=== PATIENT | male | born 1960 | race Caucasian/White ===

== ENCOUNTER 2019-04-12 11:32 | Inpatient (IN) | payer BC, OTHER ==
[~2019-04-12] VITALS: Ht 175.3 cm; Wt 88.0 kg
[2019-04-12 11:35] VITALS: BP 143/88
[2019-04-12] MEDS ORDERED: PRINIVIL10 MG PO (12:20)
[2019-04-12] MEDS ORDERED: RANITIDINE HCL150 M1 PO (12:20)
[2019-04-12 12:34] LABS: ABSOLUTE NEUTROPHILS 4.2 thou/uL (1.4-8.2); BASOPHILS 0.7 % (0.0-2.0); EOSINOPHILS 1.3 % (0.0-3.0); HEMATOCRIT 48.8 % (42.0-52.0); HEMOGLOBIN 16.1 gm/dL (14.0-18.0); MCH 28.3 pg (26.0-34.0); MCV 85.8 fL (80.0-100.0); MONOCYTES 7.3 % (1.0-8.0); PLATELET COUNT 156 thou/uL (150-400); POLYS 64.7 % (36.0-66.0); RBC 5.69 mil/uL (4.50-6.00); RDW 13.9 % (10.5-14.5); WBC 6.5 thou/uL (4.0-11.0)
[2019-04-12 12:56] LABS: ANION GAP 9 mmol/L (7-16); BUN 18 mg/dL (7-18); CALCIUM 9.1 mg/dL (8.5-10.1); CHLORIDE 102 mmol/L (98-107); CO2 27 mmol/L (21-32); CREATININE 1.2 mg/dL (0.7-1.3); GLUCOSE 95 mg/dL (74-106); POTASSIUM 4.1 mmol/L (3.5-5.1); SODIUM 138 mmol/L (136-145); TROPONIN-I <0.06 ng/mL (<0.06)
[2019-04-12 16:02] LABS: CHOLESTEROL 239 mg/dL (<200); HDL CHOLESTEROL 31 mg/dL (>40); LDL CHOLESTEROL 183 mg/dL (<100); TC:HDL 7.7 Ratio (Not establshd); TRIGLYCERIDE 127 mg/dL (<150); VLDL 25 mg/dL (<40)
[2019-04-12 16:20] LABS: INR 1.1; PROTIME 10.8 Seconds (9.3-11.4)
[2019-04-12 16:41] VITALS: BP 147/78
[2019-04-12 16:59] VITALS: BP 129/81
[2019-04-12 17:00] VITALS: BP 119/70
--- NOTE | 2019-04-12 18:25 | NUR ---
PT ADMITED FROM ER. ADMISSION HX AND ASSESSMENT. PT ALERT AND ORIENTED. VSS. DENIED HAVING PAIN OR DISCOMFORT. NEW ORDERS NOTED. WILL CONTINUE TO MONITOR.
[2019-04-12 20:15] VITALS: BP 137/93
[2019-04-13] VITALS (14 sets, daily range): BP systolic 105–127; BP diastolic 64–82
--- NOTE | 2019-04-13 05:51 | NUR ---
ASSUMED PT CARE AROUND 1910. PT WAS RESTING IN BED WITH FAMILY AT BEDSIDE. PT CONSENTS WERE SIGNED AND PT HAS BEEN NPO SINCE MIDNIGHT. PT HAD ZERO C/O CHEST PAIN, SOA, N/V/D THRU NIGHT. PT ASSESSMENTS CHARTED AND PT RESTED THRU NIGHT WITH MINIMAL INTERRUPTIONS. WILL MONITOR PER PHYSICIAN ORDERS.
--- NOTE | 2019-04-13 08:54 | CATHLAB ---
[facility] [place] [address] [place] [address] INVASIVE PROCEDURE REPORT Name: JEANETTE ALAN Room #: 209-P ADM IN .R.#: [id number] Admission: 04/12/19 Attend Phys: Shira Amaya MD Discharge: Date of : 60 Report #: [id number] THIS REPORT FOR: cc: [facility] - Clinic physician unknown [facility] - Clinic physician unknown Terry Leonard MD [facility] ~ APPROVED REPORT Study performed: 04/13/2019 07:31:10 Patient Details Patient Status: In-Patient Room #: The patient is a 59 year-old male Event Personnel Terry Leonard Care Transitions Nurse, Marion Diaz RN RN, Paulette Jimenez RTR, RIVERA Garcia, Tahira Palacios Monitor Procedures Performed Art Access - R femoral artery* 57922 Initial Mod Sed Same Phys/QHP Gr5y 900294 Left Heart Cath w/or w/o Coronaries [id number] LHC Hemostasis w/ Mynx 45550 Mod Sed Same Phys/QHP Ea 964951 Indication Chest pain Procedure Narrative The patient was brought electively to the Cardiac Catheterization Laboratory and was prepped and draped in a sterile manner. The Right Groin^ was infiltrated with 1% Lidocaine subcutaneous anesthesia. A PINNACLE 6FR Sheath #[id number] sheath was inserted into the RFA^. Coronary angiography was performed using coronary diagnostic catheters. The right coronary system was accessed and visualized with a JR4 catheter. The left coronary system was accessed and visualized with a JL4.5 catheter. The left ventricle was accessed and visualized with a ANGLE PIG catheter. Left ventriculogram was performed in 30 degree projection. There was no hematoma. Intraoperative Conscious Sedation Sedation start time: 746 Case end Time: 819 Fentanyl 50 mcg Versed 1 mg [facility] [address] [place] [address] INVASIVE PROCEDURE REPORT Name: JEANETTE ALAN Room #: 209-P [facility] IN [facility]#: [id number] Admission: 04/12/19 Attend Phys: Taylor Carrizales Discharge: Date of : 60 Report #: [id number] Fluoro Time: 4.00 minutes Dose: DAP 7012.00 cGycm2 907 mGy Contrast Type and Amount: Omnipaque 135 ml Coronary Angiography The patient's coronary anatomy is co- dominant. Diagnostic Cath Left Main Critical 99% ostial left main stenosis LAD Tubular 60% proximal to mid LAD stenosis Right to left collateralization filling the distal third of the LAD Diagonal 1 80% ostial first diagonal branch stenosis Circumflex Codominant circumflex with sequential 50-60% mid circumflex stenoses before the origin of the posterior descending OM1 Moderate size first marginal branch with mild proximal plaquing OM2 Moderate size second marginal branch, angiographically normal Right Coronary Tubular 65-70% ostial to proximal right coronary stenosis. Significant pressure dampening on engagement of the right coronary. R PDA Moderately large posterior descending, angiographically normal. Right to left collateralization to the distal portion of the LAD Left Ventriculography The left ventricle is normal in size with normal contractility. The left ventricular ejection fraction is estimated to be 60-65%. Left ventricular wall motion abnormalities are not present. There is no mitral insufficiency. Hemodynamics The aortic pressure is 118/63 mmHg with a mean of 87 mmHg. The left ventricular pressure is 109/3 mmHg with a mean of mmHg. The left ventricular end diastolic pressure is 12 mmHg. There was no gradient across the aortic valve upon pullback. Conclusion 1. Normal global and regional left ventricular systolic function. Ejection fraction 65% 2. Critical 99% ostial left main stenosis 3. Diffuse moderate to moderately severe multivessel coronary disease [facility] [address] [place] [address] INVASIVE PROCEDURE REPORT Name: JEANETTE ALAN Room #: 209-P [facility] IN ..#: [id number] Admission: 04/12/19 Attend Phys: Taylor Carrizales Discharge: Date of : 60 Report #: [id number] Recommendations Cardiac Rehabilitation Referral CABG <ELECTRONICALLY SIGNED> By: Terry Leonard MD, [facility] 04/13/19 0853 0853 0853 Terry Leonard MD, [facility] /INF
[2019-04-13 10:27] LABS: ABSOLUTE NEUTROPHILS 5.1 thou/uL (1.4-8.2); BASOPHILS 0.6 % (0.0-2.0); HEMATOCRIT 49.2 % (42.0-52.0); HEMOGLOBIN 16.1 gm/dL (14.0-18.0); LYMPHOCYTES 19.3 % (24.0-44.0); MCH 28.1 pg (26.0-34.0); MCHC 32.8 g/dL (28.0-37.0); MCV 85.8 fL (80.0-100.0); MONOCYTES 6.3 % (1.0-8.0); PLATELET COUNT 156 thou/uL (150-400); POLYS 72.8 % (36.0-66.0); RBC 5.73 mil/uL (4.50-6.00); RDW 13.8 % (10.5-14.5)
[2019-04-13 10:30] LABS: CALCIUM 8.8 mg/dL (8.5-10.1); CREATININE 1.2 mg/dL (0.7-1.3); POTASSIUM 4.4 mmol/L (3.5-5.1)
[2019-04-13 10:37] LABS: ALBUMIN 3.9 g/dL (3.4-5.0); TOTAL BILIRUBIN 1.1 mg/dL (<0.1-1.0); TOTAL PROTEIN 6.8 g/dL (6.4-8.2)
[2019-04-13 14:23] LABS: URINE BILIRUBIN NEGATIVE (Negative); URINE BLOOD NEGATIVE (Negative); URINE CLARITY CLEAR; URINE COLOR YELLOW; URINE GLUCOSE-RANDOM* NEGATIVE (Negative); URINE KETONES NEGATIVE (Negative); URINE LEUKOCYTES-REFLEX NEGATIVE (Negative); URINE NITRITE-REFLEX NEGATIVE (Negative); URINE PROTEIN (DIPSTICK) NEGATIVE (Negative)
--- NOTE | 2019-04-13 16:06 | 2DMMODE ---
[facility] [place] [address] 2 D/M-MODE ECHOCARDIOGRAM Name: JEANETTE ALAN Room #: 209-P ADM IN M.R.#: [id number] Admission: 04/12/19 Attend Phys: Shira Amaya MD Discharge: Date of : 60 Report #: [id number] THIS REPORT FOR: cc: [facility] - Clinic physician unknown [facility] - Clinic physician unknown Terry Leonard MD [facility] ~ APPROVED REPORT Study performed: 04/13/2019 14:17:21 EXAM: Comprehensive 2D, Doppler, and color-flow Echocardiogram Patient Location: Bedside Room #: 209 Status: routine BSA: 2.03 HR: 72 bpm BP: 106/71 mmHg Rhythm: NSR Other Information Study Quality: Good Indications CAD Chest Pain Hypertension/HDD 2D Dimensions RVDd: 38.49 mm IVSd: 8.74 (7-11mm) LVOT Diam: 21.68 (18-24mm) LVDd: 44.36 mm PWd: 9.22 (7-11mm) Ascending Ao: 30.46 (22-36mm) LVDs: 31.52 (25-40mm) Aortic Root: 32.11 mm Volumes Left Atrial Volume (Systole) Single Plane 4CH: 46.68 mL Single Plane 2CH: 46.05 mL LA ESV Index: 25.00 mL/m2 Aortic Valve AoV Peak Avinash.: 1.72 m/s AO Peak Gr.: 11.77 mmHg LVOT Max P.63 mmHg LVOT Max V: 1.08 m/s [facility] [place] [address] [place] [address] 2 D/M-MODE ECHOCARDIOGRAM Name: JEANETTE ALAN Room #: 209-P [facility] IN .R.#: [id number] Admission: 04/12/19 Attend Phys: Taylor Carrizales Discharge: Date of : 60 Report #: [id number] SABRINA Vmax: 2.32 cm2 Mitral Valve E/A Ratio: 0.9 MV Decel. Time: 236.43 ms MV E Max Avinash.: 0.66 m/s MV A Avinash.: 0.73 m/s MV PHT: 68.57 ms IVRT: 106.11 ms Pulmonary Valve PV Peak Avinash.: 0.90 m/s PV Peak Gr.: 3.22 mmHg Pulmonary Vein P Vein S: 0.53 m/s P Vein A: 0.26 m/s P Vein D: 0.47 m/s P Vein A Dur.: 106.1 msec P Vein S/D Ratio: 1.13 Left Ventricle The left ventricle is normal size. There is normal LV segmental wall motion. There is normal left ventricular wall thickness. The left ventricular systolic function is normal. The left ventricular ejection fraction is within the normal range. LVEF is 55-60%. Mild diastolic dysfunction is present (impaired relaxation pattern). Right Ventricle The right ventricle is normal size. The right ventricular systolic function is normal. Atria The left atrium size is normal. The right atrium size is normal. Aortic Valve The aortic valve is mildly calcified. No aortic regurgitation is present. There is no aortic valvular stenosis. Mitral Valve The mitral valve is normal in structure. There is no mitral valve regurgitation noted. No evidence of mitral valve stenosis. Tricuspid Valve The tricuspid valve is normal in structure. There is no tricuspid valve regurgitation noted. [facility] [place] [address] [place] [address] 2 D/M-MODE ECHOCARDIOGRAM Name: JEANETTE ALAN Room #: 209-P ADM IN .R.#: [id number] Admission: 04/12/19 Attend Phys: Taylor Carrizales Discharge: Date of : 60 Report #: [id number] Pulmonic Valve The pulmonary valve is normal in structure. There is no pulmonic valvular regurgitation. Great Vessels The aortic root is normal in size. The inferior vena cava is not well visualized. Pericardium There is no pericardial effusion. <Conclusion> The left ventricular systolic function is normal. There is normal LV segmental wall motion. LVEF is 55-60%. Mild diastolic dysfunction is present (impaired relaxation pattern). The aortic valve is mildly calcified. No aortic regurgitation or stenosis. The mitral valve is normal in structure. No mitral valve regurgitation. Pulmonary artery pressure could not be reliably ascertained. There is no pericardial effusion. <ELECTRONICALLY SIGNED> By: Terry Leonard MD, [facility] 04/13/19 1605 1605 04 Terry Leonard MD, [facility] /INF
--- NOTE | 2019-04-13 17:18 | NUR ---
ASSESSMENT CHARTED. PT ALERT AND ORIENTED. HAD CARDIAC CATH THIS AM WITH NO INTERVENTION. RIGHT GROIN INCISION. C/D/I. NO HEMATOMA NOTED. ORDERS GIVEN TO RESTART HEPARIN GTT. DR. HERNANDEZ CONSULTED. NEW ORDERS NOTED. NO CARDIAC OR RESPIRATORY DISTRESS NOTED. WILL CONTINUE TO MONITOR.
[2019-04-13 23:10] LABS: GLYCOHEMOGLOBIN (HGB A1C) 5.6 % (4.8-5.6)
[2019-04-14 00:24] VITALS: BP 118/70
--- NOTE | 2019-04-14 04:47 | NUR ---
ASSUMED PT CARE AROUND 1910. PT IN BED WITH FAMILY AT BEDSIDE. PT C/O ZERO PAIN, N/V/D. GROIN SITE IS C/D/I. PT RESTED THRU NIGHT WITH MINIMAL INTERRUPTIONS. WILL CONTINUE TO MONITOR PT PER PHYSICIAN ORDERS.
[2019-04-14 05:15] VITALS: BP 106/77
--- NOTE | 2019-04-14 08:15 | HC ---
[facility] [place] [facility] [place] [address] CONSULTATION Name: JEANETTE ALAN Room #: 209-P [facility] IN ..#: [id number] Admission: 04/12/19 Attend Phys: Shira Amaya MD Discharge: Date of : 60 Report #: [id number] THIS REPORT FOR: cc: [facility] - Clinic physician unknown [facility] - Clinic physician unknown Jeanette Beltrán MD ~ CC: Shira Leonard [facility] unknown DATE OF SERVICE: 04/13/2019 We were asked by Dr. Leonard to see the patient. HISTORY OF PRESENT ILLNESS: The patient is a 59-year-old who was admitted yesterday with angina. The patient describes progressive exertional discomfort that begins as a burning feeling in the epigastric area and then radiates up to what he calls the jowl area (neck). The patient states that this problem has existed for the last 6 months or so, but has become worse. He recently spoke with another individual who had similar symptoms and was informed that this could be coronary symptom and so he sought care in the Emergency Department. It does not sound like the patient was brought to the Emergency Department by some acute event, however. PAST MEDICAL HISTORY: Significant for hypertension. The patient denies diabetes mellitus. FAMILY HISTORY: Positive for coronary artery disease in father and a brother. MEDICATIONS AT HOME: The patient states he takes lisinopril for high blood pressure and ranitidine for reflux disease. PAST SURGICAL HISTORY: Carpal tunnel. SOCIAL HISTORY: Denies tobacco use. 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 REVIEW OF SYSTEMS: GENERAL: The patient denies fever or chills. EYES: No vision change. HEENT: No headache. No nasal discharge. RESPIRATORY: No shortness of breath. CARDIAC: As mentioned, exertional angina, radiating to the neck. No palpitations. GASTROINTESTINAL: Reflux. No nausea, vomiting blood. GENITOURINARY: No urgency, frequency, blood. [facility] [place] [facility] [address] [place] [address] CONSULTATION Name: JEANETTE ALAN Room #: 209-P [facility] IN ..#: [id number] Admission: 04/12/19 Attend Phys: Shira Amaya MD Discharge: Date of : 60 Report #: [id number] MUSCULOSKELETAL: No bone or joint complaints. SKIN: No rash or infection. NEUROLOGIC: No motor or sensory dysfunction. PSYCHIATRIC: No depression or anxiety. ENDOCRINE: No goiter, no tremor. PHYSICAL EXAMINATION: GENERAL: The patient is lying in bed after cardiac catheterization. VITAL SIGNS: Temperature 37, heart rate 65, respiratory rate 18, blood pressure 120/70. HEENT: No scleral icterus, no arcus. NECK: No mass, no bruit. CHEST: Clear to auscultation. HEART: Rhythm regular, no murmur. ABDOMEN: Soft, no mass, no tenderness. EXTREMITIES: No clubbing, cyanosis or edema. No obvious saphenous vein problems. SKIN: No rash or infection. MUSCULOSKELETAL: No bone or joint asymmetry or deformity. NEUROLOGIC: No motor or sensory dysfunction. PSYCHIATRIC: Oriented x 3. Shows insight into problem and answers questions appropriately. Cardiac catheterization revealed high-grade left main stenosis with subtotal occlusion of the LAD and 60% right coronary stenosis. Left ventricular function is satisfactory. I reviewed the findings of the catheterization with the patient. I have recommended that he have coronary artery bypass surgery for this tight and symptomatic left main. Risks and details of surgery were discussed. Options and alternatives were reviewed. The patient understands all of this and wishes to proceed. We will try to arrange a date for surgery this week. 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 The patient understands and agrees with all of this. Thank you for the consult. <ELECTRONICALLY SIGNED> By: Jeanette Beltrán MD 04/14/19 0815 0938 0951 Jeanette Beltrán MD /nt
[2019-04-14 08:21] VITALS: BP 128/88
[2019-04-14 11:15] VITALS: BP 129/79
--- NOTE | 2019-04-14 12:34 | EKG ---
[facility] [place] [address] ELECTROCARDIOGRAM REPORT Name: JEANETTE ALAN Room #: 209- ADM IN M.R.#: [id number] Admission: 04/12/19 Attend Phys: Shira Amaya MD Discharge: Date of : 60 Report #: [id number] THIS REPORT FOR: cc: [facility] - Clinic physician unknown [facility] - Clinic physician unknown Terry Leonard MD [facility] ~ THIS REPORT FOR: //name// 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 : 1960 Requested By: Marylou Garnett Order Number: [id number] MD: Terry Leonard Measurements Intervals [place] Rate: 64 P: 52 IA: 145 QRS: -7 QRSD: 97 T: 8 QT: 385 QTc: 398 Interpretive Statements Sinus rhythm Ventricular premature complex Possible inferior infarct, age indeterminate Compared to ECG 12/18/2005 20:02:35 Ventricular premature complex(es) now present Inferior Q waves are more prominent Electronically Signed On 04-13-2019 9:07:30 APARTMENT RENTAL AGENT by Terry Leonard [email or web address] <ELECTRONICALLY SIGNED> By: Terry Leonard MD, [facility] 04/13/19 0907 1130 1130 Terry Leonard MD, [facility] /EPI
--- NOTE | 2019-04-14 15:32 | NUR ---
met with patient who is planned CABG in am. Patient resides in home with spouse on [address]. 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 Local [address] [place] [address] clinic is were PCP located. It is clinic were patient rec medical care. Plan home independent once stable. Casemgt following
--- NOTE | 2019-04-14 15:39 | NUR ---
PT ALERT AND ORIENTED. VSS. DENIED HAVING PAIN OR DISCOMFORT. NSR ON TELE. NO CARDIAC DISTRESS NOTED. HEPARIN GTT INFUSING ORDERED. SEEN BY DR. HERNANDEZ. NEW ORDERS NOTED. NO CONCERNS AT THIS TIME. WILL CONTINUE TO MONITOR.
[2019-04-14 20:44] VITALS: BP 117/69
--- NOTE | 2019-04-15 03:58 | NUR ---
ASSESSMENT DOCUMENTED.PT BEEN RESTING IN NO ACUTE DISTRESS.A/OX4.VSS,DENIES CHEST PAIN.ON HEPARIN DRIP PER PROTOCOL,ON HOLD AT THIS TIME D/T APTT BEING CRITICAL.NSR ON MONITOR WITH SOME EPISODES OF SINUS FERDINAND WHILE SLEEPING.UP AD AR IN THE ROOM.POC IS TO HAVE CABG ON FRIDAY.WILL CONT TO MONITOR PER POC.
[2019-04-15 05:13] VITALS: BP 115/72
[2019-04-15 08:00] VITALS: BP 127/76
[2019-04-15 12:35] VITALS: BP 125/75
--- NOTE | 2019-04-15 15:12 | NUR ---
PT ALERT AND ORIENTED. VSS. DENIED HAVING PAIN OR DISCOMFORT. NPO AFTER MIDNIGHT FOR SURGERY IN AM. HEPARIN GTT INFUSING PER PROTOCAL SEE HEAPRIN FLOW SHEET. NO CARDIAC DISTRESS NOTED. WILL CONTINUE TO MONITOR.
[2019-04-15 16:00] VITALS: BP 125/74
--- NOTE | 2019-04-15 16:41 | NUR ---
All parties anticipating heart surgery tomorrow with transfer to ICU postop. Will follow along for possible hh referral at [place].
[2019-04-15 20:30] VITALS: BP 126/71
[2019-04-16] VITALS (25 sets, daily range): BP systolic 86–142; BP diastolic 34–89
--- NOTE | 2019-04-16 02:53 | NUR ---
ASSESSMENTS CHARTED, MEDS GIVEN CHARTED. PATIENT SCHEDULED FOR CABG SURGERY IN AM. PATIENT CONCERNED ABOUT PROCEDURE IN AM. PATIENT ON HEPARIN DRIP AT THERAPUTIC LEVEL. SINUS RHYTHM ON TELEMETRY, CLEAR OVER DIMINISHED LUNGS ON ROOM AIR. PATIENT HAS BEEN NPO SINCE MIDNIGHT FOR PROCEDURE. PATIENT SHOWERED AND LEADS WERE MOVED TO HIS BACK. PATIENT TO SHOWER IN MORNING PRIOR TO GOING.
[2019-04-16 12:46] LABS: MCH 28.3 pg (26.0-34.0); MCHC 33.1 g/dL (28.0-37.0); MCV 85.6 fL (80.0-100.0); RBC 4.04 mil/uL (4.50-6.00); RDW 13.5 % (10.5-14.5); WBC 12.9 thou/uL (4.0-11.0)
[2019-04-16 12:48] LABS: HEMATOCRIT 34.6 % (42.0-52.0); HEMOGLOBIN 11.4 gm/dL (14.0-18.0)
[2019-04-16 12:59] LABS: FIBRINOGEN 197.1 mg/dL (210-360); INR 1.4; PROTIME 14.6 Seconds (9.3-11.4)
[2019-04-16 13:00] LABS: APTT 34.9 Seconds (24.5-32.8)
[2019-04-16 13:39] LABS: POC BE 3 mmol/L (-2.0 to +3.0); POC CA IONIZED 4.9 mg/dL (4.5-5.3); POC GLUCOSE 117 mg/dL (70-99); POC HCO3 27.8 mmol/L (22.0-26.0); POC HEMOGLOBIN 15.6 g/dL (14.0-18.0); POC POTASSIUM 4.5 mmol/L (3.5-5.1); POC SODIUM 136 mmol/L (136-145); POC pCO2 44.7 mmHg (35.0-45.0); POC pH 7.402 (7.360-7.450)
[2019-04-16 13:40] LABS: POC BE -2 mmol/L (-2.0 to +3.0); POC CA IONIZED 4.6 mg/dL (4.5-5.3); POC GLUCOSE 175 mg/dL (70-99); POC HCO3 23.9 mmol/L (22.0-26.0); POC HEMOGLOBIN 12.2 g/dL (14.0-18.0); POC POTASSIUM 4.1 mmol/L (3.5-5.1); POC SODIUM 139 mmol/L (136-145); POC pCO2 44.6 mmHg (35.0-45.0); POC pH 7.337 (7.360-7.450)
[2019-04-16 13:40] LABS: POC BE 0 mmol/L (-2.0 to +3.0); POC CA IONIZED 4.1 mg/dL (4.5-5.3); POC GLUCOSE 234 mg/dL (70-99); POC HCO3 25.6 mmol/L (22.0-26.0); POC HEMOGLOBIN 11.2 g/dL (14.0-18.0); POC POTASSIUM 4.6 mmol/L (3.5-5.1); POC SODIUM 136 mmol/L (136-145); POC pCO2 44.4 mmHg (35.0-45.0); POC pH 7.369 (7.360-7.450)
[2019-04-16 13:40] LABS: POC BE 0 mmol/L (-2.0 to +3.0); POC CA IONIZED 4.3 mg/dL (4.5-5.3); POC GLUCOSE 167 mg/dL (70-99); POC HEMOGLOBIN 11.2 g/dL (14.0-18.0); POC POTASSIUM 4.7 mmol/L (3.5-5.1); POC SODIUM 134 mmol/L (136-145); POC pCO2 41.3 mmHg (35.0-45.0); POC pH 7.391 (7.360-7.450)
[2019-04-16 13:40] LABS: POC BE -3 mmol/L (-2.0 to +3.0); POC CA IONIZED 4.8 mg/dL (4.5-5.3); POC GLUCOSE 221 mg/dL (70-99); POC HCO3 22.9 mmol/L (22.0-26.0); POC HEMOGLOBIN 11.2 g/dL (14.0-18.0); POC POTASSIUM 4.2 mmol/L (3.5-5.1); POC SODIUM 137 mmol/L (136-145); POC pCO2 41.4 mmHg (35.0-45.0); POC pH 7.351 (7.360-7.450)
[2019-04-16 13:40] LABS: POC BE -2 mmol/L (-2.0 to +3.0); POC CA IONIZED 4.3 mg/dL (4.5-5.3); POC GLUCOSE 244 mg/dL (70-99); POC HCO3 23.7 mmol/L (22.0-26.0); POC HEMOGLOBIN 11.6 g/dL (14.0-18.0); POC POTASSIUM 4.4 mmol/L (3.5-5.1); POC SODIUM 137 mmol/L (136-145); POC pCO2 45.3 mmHg (35.0-45.0); POC pH 7.327 (7.360-7.450)
[2019-04-16 13:40] LABS: POC BE 1 mmol/L (-2.0 to +3.0); POC CA IONIZED 4.6 mg/dL (4.5-5.3); POC GLUCOSE 135 mg/dL (70-99); POC HCO3 25.7 mmol/L (22.0-26.0); POC HEMOGLOBIN 13.6 g/dL (14.0-18.0); POC POTASSIUM 4.8 mmol/L (3.5-5.1); POC SODIUM 136 mmol/L (136-145); POC pCO2 43.3 mmHg (35.0-45.0); POC pH 7.381 (7.360-7.450)
[2019-04-16 13:40] LABS: POC BE -3 mmol/L (-2.0 to +3.0); POC CA IONIZED 4.2 mg/dL (4.5-5.3); POC GLUCOSE 252 mg/dL (70-99); POC HCO3 23.5 mmol/L (22.0-26.0); POC HEMOGLOBIN 10.5 g/dL (14.0-18.0); POC POTASSIUM 4.7 mmol/L (3.5-5.1); POC SODIUM 133 mmol/L (136-145); POC pCO2 46.3 mmHg (35.0-45.0); POC pH 7.314 (7.360-7.450)
[2019-04-16 13:40] LABS: POC BE -1 mmol/L (-2.0 to +3.0); POC CA IONIZED 4.3 mg/dL (4.5-5.3); POC GLUCOSE 213 mg/dL (70-99); POC HCO3 23.4 mmol/L (22.0-26.0); POC HEMOGLOBIN 12.6 g/dL (14.0-18.0); POC POTASSIUM 4.4 mmol/L (3.5-5.1); POC SODIUM 135 mmol/L (136-145); POC pCO2 37.8 mmHg (35.0-45.0)
[2019-04-16 14:17] LABS: HEMATOCRIT 39.8 % (42.0-52.0); MCH 27.8 pg (26.0-34.0); MCHC 32.7 g/dL (28.0-37.0); MCV 84.8 fL (80.0-100.0); RBC 4.69 mil/uL (4.50-6.00); RDW 13.9 % (10.5-14.5); WBC 13.9 thou/uL (4.0-11.0)
[2019-04-16 14:29] LABS: CALCIUM 7.6 mg/dL (8.5-10.1); CREATININE 1.5 mg/dL (0.7-1.3); MAGNESIUM 2.2 mg/dL (1.8-2.4); POTASSIUM 3.9 mmol/L (3.5-5.1)
[2019-04-16 14:30] LABS: BE(vivo) -5.3 mmol/L (-2 to +3); HCO3 20.8 mmol/L (22.0-26.0); PCO2 42.6 mmHg (35.0-45.0); PO2 105.2 mmHg (80.0-100.0); sO2 97.3 % (92.0-98.0)
--- NOTE | 2019-04-16 14:30 | NUR ---
pt admitted from surgery acc, by surgery staff and Dr Sosa. pt is sedated and placed on the Vent. Monitor set-up. all vss stable at this time. Cardene on at 5 mcg. and Insulin. bs done and insulin turn off per protocol. Labs and ABG done and send to lab. Dr Beltrán here to see. See VSFS. Sternal dressing intact chest tubes draining a small carrie of drainage. Good Urinary output. will cont to work toward the POCto extubate patient.
[2019-04-16 14:32] LABS: pH 7.306 (7.360-7.450)
[2019-04-16 14:32] LABS: APTT 35.8 Seconds (24.5-32.8); INR 1.2; PROTIME 12.3 Seconds (9.3-11.4)
--- NOTE | 2019-04-16 15:27 | EKG ---
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: : 1960 Requested By: Jeanette Beltrán Order Number: [id number] MD: Todd Elizabeth Measurements Intervals [place] Rate: 107 P: 66 CT: 132 QRS: 26 QRSD: 99 T: 2 QT: 345 QTc: 461 Interpretive Statements Sinus tachycardia Probable left atrial enlargement Compared to ECG 04/12/2019 11:30:36 Sinus rhythm no longer present Ventricular premature complex(es) no longer present Myocardial infarct finding no longer present Electronically Signed On 04-16-2019 15:26:20 LABORATORY TECH by Todd Elizabeth [email or web address] <ELECTRONICALLY SIGNED> By: Todd Elizabeth MD 04/16/19 1526 1432 1432 Todd Elizabeth MD /EPI
--- NOTE | 2019-04-16 16:30 | NUR ---
Dr Beltrán here to see and ABG's done pt is ready to be extubated. Pt extubated and placed on nc@ 6 l/nc. Will cont to monitor.
--- NOTE | 2019-04-16 19:00 | NUR ---
Report given to oncoming RN. Pt progressing toward goals.
[2019-04-17] VITALS (12 sets, daily range): BP systolic 103–144; BP diastolic 60–86
[2019-04-17 05:51] LABS: HEMATOCRIT 37.2 % (42.0-52.0); HEMOGLOBIN 11.9 gm/dL (14.0-18.0); MCH 27.7 pg (26.0-34.0); MCV 86.7 fL (80.0-100.0); RBC 4.29 mil/uL (4.50-6.00); RDW 13.7 % (10.5-14.5); WBC 12.6 thou/uL (4.0-11.0)
--- NOTE | 2019-04-17 06:00 | NUR ---
Pt remains stable. No event tonight. He is continue to have pain control issues. He received multiple IV pain med w/o any complications. On low dose of cardene gtt for BP control. No changes if cardiac rhythms. Lines ,CTs and epidcardial pacer wires remains inplaced. Slowly progressing toward goals.
[2019-04-17 06:12] LABS: CALCIUM 7.8 mg/dL (8.5-10.1); CREATININE 1.2 mg/dL (0.7-1.3); MAGNESIUM 2.1 mg/dL (1.8-2.4); POTASSIUM 4.3 mmol/L (3.5-5.1)
--- NOTE | 2019-04-17 13:42 | EKG ---
[facility] [place] [address] ELECTROCARDIOGRAM REPORT Name: JEANETTE ALAN Room #: 243 ADM IN M.R.#: [id number] Admission: 04/12/19 Attend Phys: Shira Amaya MD Discharge: Date of : 60 Report #: [id number] THIS REPORT FOR: cc: [facility] - Clinic physician unknown [facility] - Clinic physician unknown Todd Elizabeth MD ~ THIS REPORT FOR: //name// [facility] Test Date: 2019-04-17 Test Time: 08:13:47 Pat Name: JEANETTE ALAN Department: Room: [facility] Gender: M Digital Editor: Sharon RINCON : 1960 Requested By: Jeanette Beltrán Order Number: [id number] MD: Todd Elizabeth Measurements Intervals [place] Rate: 90 P: 47 DE: 134 QRS: -1 QRSD: 79 T: -12 QT: 370 QTc: 453 Interpretive Statements Sinus rhythm Borderline repolarization abnormality Compared to ECG 04/16/2019 14:32:25 Electronically Signed On 04-17-2019 13:41:28 RESOURCE ANALYST by Todd Elizabeth [email or web address] <ELECTRONICALLY SIGNED> By: Todd Elizabeth MD 04/17/19 1341 2 2 Todd Elizabeth MD /[facility]AMTA
--- NOTE | 2019-04-17 19:22 | NUR ---
ASSUMED CARE @ 0700 04/17/19, PT ASSESSMENTS AND VSS COMPLETE PER ICU PROTOCOL. CABG POST OP X 1, SWAN AND MEDIASTINAL TUBE DC'D PER ORDERS. DR HERNANDEZ AND DR FLOWERS HERE DURING THE SHIFT TO ROUND ORDERS RECIEVED. PT PROGRESSING TOWARDS POC.
[2019-04-18] VITALS (10 sets, daily range): BP systolic 91–145; BP diastolic 55–83
[2019-04-18 04:45] LABS: CALCIUM 8.2 mg/dL (8.5-10.1); POTASSIUM 4.7 mmol/L (3.5-5.1)
[2019-04-18 05:05] LABS: HEMATOCRIT 34.5 % (42.0-52.0); HEMOGLOBIN 11.4 gm/dL (14.0-18.0); MCH 28.3 pg (26.0-34.0); MCHC 33.1 g/dL (28.0-37.0); MCV 85.6 fL (80.0-100.0); RBC 4.03 mil/uL (4.50-6.00); RDW 13.7 % (10.5-14.5); WBC 12.7 thou/uL (4.0-11.0)
--- NOTE | 2019-04-18 06:00 | NUR ---
PT CONT TO HAVE INCISIONAL PAIN. MEDS GIVEN ORDERED, SINUS RHYTHM LUNGS DIMINISHED AND CLEAR. IS UP 1000. DRESSINGS DRY And INTACT 60 CC PLEURAL TUBE OUT AND 600 CC UOP. WILL CONT TO MONITOR.
--- NOTE | 2019-04-18 07:53 | O ---
[facility] [place] [address] OPERATIVE REPORT Name: JEANETTE ALAN Room #: 243-P [facility] IN M.R.#: [id number] Admission: 04/12/19 Attend Phys: Shira Amaya MD Discharge: Date of : 60 Report #: [id number] THIS REPORT FOR: cc: [facility] - Clinic physician unknown [facility] - Clinic physician unknown Jeanette Beltrán MD ~ CC: Shira Leonard [facility] unknown DATE OF SERVICE: 04/16/2019 PREOPERATIVE DIAGNOSIS: Coronary artery disease. POSTOPERATIVE DIAGNOSIS: Coronary artery disease. OPERATION: Coronary artery bypass x 4 including left internal mammary artery to left anterior descending artery, saphenous vein to diagonal and marginal and saphenous vein to posterior descending artery (right coronary branch) and posterolateral branch (circumflex branch) and endoscopic harvest, left greater saphenous vein. SURGEON: Jeanette Beltrán MD AIRPORT ATTENDANT: ALEX Myers. ANESTHESIA: General. INDICATIONS: The patient is a 59-year-old seen for Dr. Terry Leonard. The patient presents with progressive exertional angina and shortness of breath. Catheterization demonstrated a high-grade left main coronary stenosis as well as ostial right coronary lesion. Left ventricular function is satisfactory. FINDINGS AND TECHNIQUE: After general anesthesia was established, saphenous vein was harvested and prepared for use as a conduit. Exposure was obtained through median sternotomy. Saphenous vein was harvested with an endoscopic approach and prepared for use as a conduit. Exposure was obtained through median sternotomy. Left internal mammary artery was harvested from chest wall. Pericardial well was made. Cannulation sutures were placed. Heparin was given. Aorta was cannulated. Right atrium was cannulated. Cardioplegia needle was positioned in the aortic root. Retrograde cardioplegia catheter was placed in coronary sinus. Cardiopulmonary bypass was established. Aorta was cross clamped. Antegrade and retrograde cardioplegia were given. Ice was poured into the pericardial well. The heart was stopped. [facility] [address] [place] [address] OPERATIVE REPORT Name: JEANETTE ALAN Room #: 243-P [facility] IN [facility]#: [id number] Admission: 04/12/19 Attend Phys: Shira Amaya MD Discharge: Date of : 60 Report #: [id number] During electromechanical arrest, the distal anastomoses were performed and end-to-side anastomosis was made in vein and posterolateral branch, which appeared to be a distal circumflex branch. Cold cardioplegia was given. The same segment of vein was sewn in [id number]-rb-iezk fashion to posterior descending artery. Cold cardioplegia was given. A separate segment of vein was sewn in end-to-side fashion to the large first marginal artery. Cold cardioplegia was given. The same segment of vein was sewn in [id number]-vc-[id number] fashion to the large first diagonal. Cold cardioplegia was given. Left internal mammary artery was sewn in end-to-side fashion to the left anterior descending artery. This was done in a relatively distal position beyond an area of plaque within the vessel. The anastomosis was checked both with the Doppler and the temperature technique. Cold cardioplegia was given. Two proximal anastomoses were performed. When these were complete, warm retrograde cardioplegia was given followed by warm continuous blood to the coronary sinus. When this infusion was complete, the crossclamp was removed, de-airing maneuvers were performed. The anastomoses were inspected and found to be satisfactory. As the patient warmed, nice cardiac activity resumed, chest tubes and pacing wires were placed, a marker was placed around the proximal anastomoses. When the patient was warm, he was weaned from cardiopulmonary bypass. Venous cannula was removed. Protamine was given, the aortic cannula was removed. Flows were measured in the bypass grafts. When hemostasis was satisfactory, chest was irrigated with antibiotic solution and closed in the usual fashion. The patient was taken to the Intensive Care Unit in good condition having tolerated the procedure well. All counts reported as correct. <ELECTRONICALLY SIGNED> By: Jeanette Beltrán MD 04/18/19 0753 [id number] Jeanette Beltrán MD /nt
--- NOTE | 2019-04-18 11:44 | NUR ---
ASSUMED CARE @ 0700 04/18/19, DR HERNANDEZ HERE THIS AM TO ROUND. PLEURAL CHEST TUBES AND PACER WIRES DC'D BY DR HERNANDEZ. ORDERS TO HARINI HITCHCOCK AND Sharon JIMENEZ. CCU ORDERS IN. PT PROGRESSING TOWARDS POC.
--- NOTE | 2019-04-18 19:50 | NUR ---
PT CARE ASSUMED APPROX 1800. ALERT AND ORIENTED X4. MEDICATED FOR PAIN. SPOUSE AT BEDSIDE. BOTH DENY CONCERNS. UP TO CHAIR COMFORTABLY. NO DISTRESS NOTED.
[2019-04-19 04:50] VITALS: BP 109/61
--- NOTE | 2019-04-19 07:53 | EKG ---
[facility] [place] [address] ELECTROCARDIOGRAM REPORT Name: JEANETTE ALAN Room #: [facility]- ADM IN M.R.#: [id number] Admission: 04/12/19 Attend Phys: Shira Amaya MD Discharge: Date of : 60 Report #: [id number] THIS REPORT FOR: cc: [facility] - Clinic physician unknown [facility] - Clinic physician unknown Terry Leonard MD [facility] THIS REPORT FOR: //name// [facility] Test Date: 2019-04-18 Test Time: 08:53:50 Pat Name: JEANETTE ALAN Department: Room: [facility] Gender: M Bag Sorter: KERI : 1960 Requested By: Todd Elizabeth Order Number: [id number] MD: Terry Leonard Measurements Intervals [place] Rate: 88 P: 42 [place]: 145 QRS: -7 QRSD: 82 T: -5 QT: 353 QTc: 427 Interpretive Statements Sinus rhythm Borderline T abnormalities, inferior leads Borderline ST elevation, lateral leads Compared to ECG 04/17/2019 08:13:47 repolarization abnormality is less prominent Electronically Signed On 04-19-2019 7:52:13 ORGANIZATIONAL DEVELOPMENT SPECIALIST by Terry Leonard [email or web address] <ELECTRONICALLY SIGNED> By: Terry Leonard MD, FACC 04/19/19 [id number] [id number] Terry Leonard MD, [facility] /EPI
[2019-04-19 11:35] VITALS: BP 111/60
--- NOTE | 2019-04-19 15:50 | NUR ---
ASSUMED CARE AT SHIFT CHANGE, ALERT AND ORIENTED X4. VSS AND AFEBRILE. PATIENT SHOWERED TODAY AND DRESSING CHANGED, INCSION WELL APPROXIMATED, AND MEDICATED FOR PAIN NEEDED. PROGRESSING WELL TOWARD GOALS AND WILL CONTINUE WITH POC.
[2019-04-19 16:00] VITALS: BP 92/66
[2019-04-19 20:37] VITALS: BP 114/56
[2019-04-20 05:28] VITALS: BP 93/50
[2019-04-20 05:29] LABS: HEMATOCRIT 36.1 % (42.0-52.0); HEMOGLOBIN 11.8 gm/dL (14.0-18.0); MCH 28.1 pg (26.0-34.0); MCHC 32.6 g/dL (28.0-37.0); MCV 86.4 fL (80.0-100.0); RBC 4.18 mil/uL (4.50-6.00); RDW 13.8 % (10.5-14.5); WBC 7.9 thou/uL (4.0-11.0)
[2019-04-20 05:52] LABS: CALCIUM 8.7 mg/dL (8.5-10.1); CREATININE 1.2 mg/dL (0.7-1.3); POTASSIUM 3.9 mmol/L (3.5-5.1)
[2019-04-20 08:02] VITALS: BP 99/64
--- NOTE | 2019-04-20 08:06 | NUR ---
ASSESSMENTS CHARTED, MEDS GIVEN PATIENT POD4 WENT FOR 2 WALKS DURING SHIFT 2 LAPS EACH TIME. PASSING FLATUS. C/O PAIN 3/10 DURING NIGHT. PAIN RESOLVED. PLAN OF CARE TO GO HOME TODAY.
--- NOTE | 2019-04-20 08:22 | EKG ---
[facility] [place] [address] ELECTROCARDIOGRAM REPORT Name: JEANETTE ALAN Room #: 215 ADM IN M.R.#: [id number] Admission: 04/12/19 Attend Phys: Shira Amaya MD Discharge: Date of : 60 Report #: [id number] THIS REPORT FOR: cc: [facility] - Clinic physician unknown [facility] - Clinic physician unknown Todd Elizabeth MD ~ THIS REPORT FOR: //name// [facility] Test Date: 2019-04-20 Test Time: 07:09:08 Pat Name: JEANETTE ALAN Department: Room: [facility] Gender: M Mill Controller: ALYSSA : 1960 Requested By: Jeanette Beltrán Order Number: [id number] MD: Todd Elizabeth Measurements Intervals [place] Rate: 73 P: 61 [place]: 149 QRS: 4 QRSD: 98 T: -5 QT: 402 QTc: 443 Interpretive Statements Sinus rhythm Borderline T abnormalities, inferior leads Compared to ECG 04/18/2019 08:53:50 ST (T wave) deviation no longer present T-wave abnormality still present Electronically Signed On 04-20-2019 8:21:55 CAN MAKER by Todd Elizabeth [email or web address] <ELECTRONICALLY SIGNED> By: Todd Elizabeth MD 04/20/19 0821 0709 Todd Elizabeth MD /EPI
[2019-04-20] MEDS ORDERED: CRESTOR40 MG PO (09:05)
[2019-04-20] MEDS ORDERED: ADULT LOW DOSE81 MG PO (09:05)
[2019-04-20] MEDS ORDERED: METOPROLOL SUCC50 MG PO (09:05)
[2019-04-20] MEDS ORDERED: PACERONE 200 M200 M1 PO (09:13)
--- NOTE | 2019-04-20 11:35 | NUR ---
ASSUMED CARE 0700, ALERTX4, DENIES SOB, DENIES CHEST PAIN, INCISION SITE PAIN 4/10 RESOLVES WITH PRN MEDICATIONS, FOLLOWING POST CABG PROTOCAL. PHYSICAL THERAPY ROUNDED AND TOOK PT OFF FALL PRECAUTIONS. PLANS TO DC PATIENT HOME TODAY. CARDIAC TRIMMING ASSEMBLER PROVIDED EDUCATION AND REVIEWED NEW MEDS. EDUCATION TO FOLLOW UP WITH CARDIOLOGY AND DR HERNANDEZ APPOINTMENT NO SHOWERS KEEPS STERNAL DRESSING CLEAN AND DRY. NSR ON TELE. DRESSING C/D/I. SCRIPTS FILLED IN OUTPATIENT PHARMACY. VS STABLE. CALL LIGHT IN REACH.
[2019-04-20 12:34] VITALS: BP 97/54
[2019-04-20] MEDS ORDERED: HYDROCODON-ACE1 EAC7 PO (13:00)
[2019-04-20 13:42] VITALS: BP 97/54
== END 2019-04-20 14:44 | disposition home or self-care (01) | DRG 234 ==
LOC: ER 11:32 → EROBS 15:29 → 2N 15:29 → TBA 04-16 07:45 → ICU 04-16 14:04 → 2N 04-18 17:42 → ENTRNSPT 04-20 14:00 → EDTRNSPTSTS 04-20 14:02 → 2N 04-20 14:44
PROVIDERS: Nurse Practitioner; Student in an Organized Health Care Education/Training Program; Surgery Vascular Surgery; ADMIT Hospitalist
PROC: B2111ZZ Fluoroscopy of Multiple Coronary Arteries using Low Osmolar Contrast (ICD-10-PCS; principal; 2019-04-13)
PROC: B2151ZZ Fluoroscopy of Left Heart using Low Osmolar Contrast (ICD-10-PCS; principal; 2019-04-13)
PROC: 4A023N7 Measurement of Cardiac Sampling and Pressure, Left Heart, Percutaneous Approach (ICD-10-PCS; principal; 2019-04-13)
PROC: 02100Z9 Bypass Coronary Artery, One Artery from Left Internal Mammary, Open Approach (ICD-10-PCS; 2019-04-16)
PROC: 021309W Bypass Coronary Artery, Four or More Arteries from Aorta with Autologous Venous Tissue, Open Approach (ICD-10-PCS; 2019-04-16)
PROC: 5A1221Z Performance of Cardiac Output, Continuous (ICD-10-PCS; 2019-04-16)
PROC: 06BQ4ZZ Excision of Left Saphenous Vein, Percutaneous Endoscopic Approach (ICD-10-PCS; 2019-04-16)
DX: I25.110 Atherosclerotic heart disease of native coronary artery with unstable angina pectoris (principal); E87.1 Hypo-osmolality and hyponatremia; I10 Essential (primary) hypertension; K21.9 Gastro-esophageal reflux disease without esophagitis; E78.5 Hyperlipidemia, unspecified; I25.82 Chronic total occlusion of coronary artery; D69.6 Thrombocytopenia, unspecified; Z82.49 Family history of ischemic heart disease and other diseases of the circulatory system; Z79.899 Other long term (current) drug therapy
CPT/HCPCS: 10078; 10081; 47000; 47001; 47002; 47297; 48888; 50010; 50249; 50409; 50456; 50498; 50668; 51301; 52131; 52259; 52314; 53327; 53358; 54118; 56455; 56524; 56525; 56526; 56527; 56528; 56531; 56534; 56668; 56760; 56898; 57093; 57116; 57167; 62110; 62950; 65003; 65020; 65047; 65090; 65120; 65135; 83006